=== PATIENT | female | born 1985 | race Caucasian/White ===

== ENCOUNTER 2019-09-01 05:50 | Day surgery (SDC) | payer OTHER ==
[~2019-09-01] VITALS: Ht 162.6 cm; Wt 55.3 kg
--- NOTE | ~2019-09-01 | OR ---
[facility] [address], [place] [address] Draft DATE OF OPERATION: 09/01/2019 SURGEON: Stephanie Main MD PREOPERATIVE DIAGNOSIS: Pelvic pain, dyspareunia, history of endometriosis. POSTOPERATIVE DIAGNOSIS: Pelvic pain, dyspareunia, history of endometriosis with pelvic and ovarian endometriosis. PROCEDURE: Laparoscopy with laser fulguration of endometriosis, lysis of adhesions. ANESTHESIA: General ET. ESTIMATED BLOOD LOSS: Minimal. DRAINS: None. INDICATIONS AND FINDINGS: The patient is a 33-year-old female, 4, para 4, who has been having increasing problems with the pelvic pain and dyspareunia. She has a history of endometriosis status post prior laparoscopy with laser. She has been on control pills and initially did very well, but then had recurrent pain. She was given a trial of at the higher dose, which did improve her pain, but she had other side effects, which caused her to discontinue treatment. She therefore chose to undergo another surgery. At the time of surgery, exam under anesthesia was normal. At the time of laparoscopy, there was endometriosis in the posterior cul-de-sac. The right posterior ovarian fossa over both ovaries and the anterior uterus with an adhesion of the anterior peritoneum to the lower segment of the uterus. DESCRIPTION OF PROCEDURE: The patient was prepped and draped in the dorsal lithotomy position. An open-sided speculum was placed. The anterior lip of the cervix was visualized and grasped with a single-tooth tenaculum. The GEMINI cannula was then placed and the speculum removed. Attention was directed above. The infraumbilical area was injected with 0.5% Marcaine plain and incision made with a knife. Each layer was then serially elevated and incised PATIENT NAME: JIN MCCORMICK OPERATIVE REPORT DATE OF : 81 REPORT #: [id number] PHYSICIAN: STEPHANIE MAIN MD PCP: EJ SHAFER PA-C REPORT IS CONFIDENTIAL AND NOT TO BE RELEASED WITHOUT AUTHORIZATION [facility] [address], [place] [address] Draft until the fascia was opened and identified. Stay sutures were placed with 0 Vicryl. The peritoneum was then opened sharply. Placement of the Vandana with the balloon inflated was then done. I placed the scope confirmed proper positioning. CO2 was then introduced into the abdomen. When the abdomen was appropriately distended, a secondary port was placed on the patient's left. This was below the level of the umbilicus and placed laterally. The area of the abdominal wall was transilluminated, injected with the Marcaine incision made with a knife and the 5 mm port placed under direct vision. Following this, the pelvis was inspected and the endometriosis found. A 3rd puncture site was made in the right lower quadrant in the same manner. Following this, the CO2 laser was used using the fiber. This was on continuous power of ten. The endometriosis of the posterior cul-de-sac was then fulgurated. The endometriosis over the surface of both ovaries was also fulgurated using the laser. There was a small amount of endometriosis in the right ovarian posterior fossa and this was fulgurated as well. Following this, the anterior aspect of the uterus was re-evaluated and there was a nodule consistent with endometriosis over the lower segment on the right. There were also adhesions of the peritoneum to the anterior uterus. The laser was initially used to treat the endometriosis over the lower uterine segment and to begin dividing the adhesion, but the adhesion proved to be thicker than expected and cautery and scissors were used to complete the lysis of adhesions. The pelvis was then irrigated and inspected. Bleeding points over the anterior wall of the uterus was controlled with a spatula-tip cautery. Following this, Tisseel was sprayed over the uterus to aid further in hemostasis, so it did appear to be hemostatic at that point. The procedure was then terminated. The instruments removed from the abdomen after allowing the CO2 as possible to escape. The fascial incision of the umbilicus was reidentified and closed with a running suture of #0 Vicryl. The stay sutures were tied across as well. The skin incisions were closed with subcuticular sutures of 3-0 Vicryl Rapide. Attention was directed down below and the incisions removed. There was no evidence of any bleeding from the tenaculum sites. The patient was then taken to the recovery room in good condition. Stephanie Main MD PJW/MODL /[id number] cc: Anabel Shafer MD PATIENT NAME: JIN MCCORMICK OPERATIVE REPORT DATE OF : 81 REPORT #: [id number] PHYSICIAN: STEPHANIE MAIN MD PCP: EJ SHAFER PA-C REPORT IS CONFIDENTIAL AND NOT TO BE RELEASED WITHOUT AUTHORIZATION [facility] [address] [facility] [place], [place] [address] Draft Copies: ~ PATIENT NAME: JIN MCCORMICK OPERATIVE REPORT DATE OF : 81 REPORT #: [id number] PHYSICIAN: STEPHANIE MAIN MD PCP: EJ SHAFER PA-C REPORT IS CONFIDENTIAL AND NOT TO BE RELEASED WITHOUT AUTHORIZATION
[~2019-09-01 05:50] MED LIST: IBUPROFEN600 MG PO; LEVOTHYROXINE125 MCG PO; MOTRIN IB200 MG PO; NORCO 5-325 TA1 EACH PO; PENICILLIN V P500 MG PO; PERCOCET 5-3251 EACH PO; SPRINTEC1 EACH PO; VITAMIN D35000 UNI2 PO; ZOLOFT25 MG PO; ZOLOFT50 MG PO
--- NOTE | 2019-09-01 09:14 | NUR ---
09/01/19 0914 Charley Colin 0848- PT ARRIVES TO PACU AROUSABLE BUT NOT FOLLOWING COMMANDS. PT IS SHAKING ALL OVER AND IS DIFFICULT TO OBTAIN A BLOOD PRESSURE ON. SEUN PAWS WARMER TURNED ON TO WARM UP. RESP EVEN AND UNLABORED. OXYGEN SAT HIGH 90'S TO 100% ON 6L VIA MASK. 0852- WARM BLANKETS PLACED ON PT AND SEUN PAWS WARMER PT CONTINUES TO SHAKE AND STATES SHE IS COLD. PT ALSO BELIEVES THE SHAKING MIGHT BE FROM THE ANESTHESIA. 0857- OXYGEN TITRATED OFF. PT WAS REQUESTING THE MASK TO BE REMOVED. 0902- PT SITTING UP IN BED. WATER PROVIDED PER PT REQUEST. TOLERATING WELL. PT'S SHAKING SLOWED. PT REPORTS NO PAIN OR NAUSEA AT THIS TIME. 0914- PT CONTINUES TO SIP ON WATER. NO SHAKING NOTED.
--- NOTE | 2019-09-01 09:27 | NUR ---
PT IS BACK TO DS FROM PACU. SHE IS DROWSY, ENGINE REPAIRER IS AT THE BEDSIDE. WATER ON BEDSIDE. TABLE CALL LIGHT WITHIN REACH. NO ADDITIONAL NEEDS AT THIS TIME.
--- NOTE | 2019-09-01 10:29 | NUR ---
PT IS MORE AWAKE AND ALERT. MATERIALS MANAGEMENT MANAGER IS STILL AT THE BEDSIDE. SHE IS REPORTING MINIMAL PAIN. SHE DOESN'T FEEL LIKE SHE NEEDS TO URINATE. WOULD LIKE MORE CRACKERS. TOLERATING WATER AND CRACKERS WELL. NO ADDITIONAL NEEDS.
--- NOTE | 2019-09-01 11:36 | NUR ---
LE 1115: PT WOULD LIKE TO GET UP AND USE THE RESTROOM. SHE IS ABLE TO AMBULATE HERSELF WITH STANDBY ASSIST. SHE IS ABLE TO VOID 100MLS. SHE REPORTS THAT SHE IS FEELING GOOD AND WOULD LIKE TO GO HOME. SHE IS ALLOWED TO GET DRESSED. PT AND BILLING CLERK ARE GIVEN VERBAL DC INSTRUCTIONS, THEY BOTH VERBALIZE UNDERSTANDING. QUESTIONS ARE ANSWERED. SHE IS TAKEN TO VEHICLE VIA WC. SHE IS ABLE TO TRANSFER HERSELF FROM WC TO VEHICLE.
== END 2019-09-01 11:25 | disposition home or self-care (01) ==
LOC: DS 05:50
PROVIDERS: Obstetrics & Gynecology
PROC: 0U524ZZ Destruction of Bilateral Ovaries, Percutaneous Endoscopic Approach (ICD-10-PCS; principal; 2019-09-01 06:45)
DX: N80.1 Endometriosis of ovary (principal); N80.3 Endometriosis of pelvic peritoneum; N94.12 Deep dyspareunia; F41.9 Anxiety disorder, unspecified; F32.9 Major depressive disorder, single episode, unspecified; G43.909 Migraine, unspecified, not intractable, without status migrainosus; E03.9 Hypothyroidism, unspecified; Z79.899 Other long term (current) drug therapy; Z88.5 Allergy status to narcotic agent; Z98.51 Tubal ligation status
CPT/HCPCS: 00840; J1100; J1644; J1885; J2250; J2405; J2704; J2765; J3010; J7121